=== PATIENT | female | born 1970 | race Caucasian/White ===

== ENCOUNTER 2017-09-07 05:22 | Observation (INO) | payer BC ==
[2017-08-18 12:52] VITALS: BMI 23.0
--- NOTE | 2017-08-18 13:18 | PAT Medication Instructions ---
Service Date Aug 18, 2017. Current Home Medication List No Active Prescriptions or Reported Meds Medication Instructions For Your Scheduled Surgery No Active Prescriptions or Reported Meds--Please contact PAT department if starting any medications prior to surgery. If you have any questions please call us at [phone] or [phone] or [phone]
[2017-08-18 13:57] LABS: BASO % 0.6 %; BASO ABS # 0.03 K/uL (0-0.2); EOS % 5.5 %; HEMATOCRIT 31.1 % (37-47); LYMPH % 20.7 %; LYMPH ABS # 1.09 K/uL (1.2-3.4); MEAN CELL VOLUME 70.8 fL (80-100); MEAN CORPUSCULAR HEMOGLOBIN 20.7 pg (25-34); MEAN CORPUSCULAR HGB CONC 29.3 g/dl (32-36); MEAN PLATELET VOLUME 10.6 fL (7.4-10.4); MONO % 5.1 %; NEUT % 68.1 %; PLATELET COUNT 377 K/uL (130-400); RED BLOOD COUNT 4.39 M/uL (4.2-5.4); WHITE BLOOD COUNT 5.26 K/uL (4.8-10.8)
[2017-08-18 14:08] LABS: COMPLETE YES
[2017-08-18 14:09] LABS: PARTIAL THROMBOPLASTIN RATIO 0.9
[2017-08-18 14:14] LABS: BUN/CREATININE RATIO 21.8 (10-20); CALCIUM 8.9 mg/dl (8.5-10.1); CREATININE 0.65 mg/dl (0.60-1.20)
[2017-08-18 14:17] LABS: ANISOCYTOSIS PRESENT; HYPERSEGMENTED POLYS 1+; HYPOCHROMIA PRESENT; MICROCYTOSIS PRESENT
[~2017-09-07] VITALS: Ht 172.7 cm; Wt 68.6 kg
[2017-09-07] VITALS (9 sets, daily range): BP systolic 107–146; BP diastolic 57–76; PULSE 63–89; TEMP 36.7–37.3; O2SAT 97–99; Ht 172.7 cm; Wt 68.6 kg
[2017-09-07] MEDS ORDERED: ENOXAPARIN 40 MG/0.4 ML SYR SQ SCH (06:00)
[2017-09-07] MEDS ORDERED: LACTATED RINGER'S 1000ML 1,000 ML IV SCH (06:00)
--- NOTE | 2017-09-07 06:55 | History & Physical Bridge Note ---
H&P Re-Evaluation Bridge Note: I have examined the patient, reviewed the History & Physical and in the interval since the performance of the History & Physical I have noted the following changes of clinical significance: No changes noted
[2017-09-07] MEDS ORDERED: NURSING VERBAL MED ORDER ONE ×2 (06:58→22:15)
[2017-09-07] MEDS ORDERED: SCOPOLAMINE 1.5 MG TDSY TD ONE (06:58)
[2017-09-07] MEDS ORDERED: MIDAZOLAM HCL 1 MG/ML 2ML VIAL ONE (07:01)
[2017-09-07] MEDS ORDERED: FENTANYL CITRATE INJ 50 MCG/1 ML 2 ML VIAL ONE ×2 (07:01→10:04)
[2017-09-07] MEDS ORDERED: ACETAMINOPHEN 1000 MG/100 ML IV IV ONE (07:08)
[2017-09-07] MEDS ORDERED: FENTANYL CITRATE INJ 50 MCG/1 ML 2 ML VIAL IV PRN (07:15)
[2017-09-07] MEDS ORDERED: MoRPHine SULFATE 10 MG/ML CARP/VIAL IV PRN (07:15)
[2017-09-07] MEDS ORDERED: ONDANSETRON INJ 2 MG/ML 2 ML VIAL IV PRN ×3 (07:15→14:30)
[2017-09-07] MEDS ORDERED: ATROPINE SULFATE 0.1 MG/ML 5ML SYR IV PRN (07:15)
[2017-09-07] MEDS ORDERED: EpHEDrine SULFATE INJ 50 MG/ML AMP IV PRN (07:15)
[2017-09-07] MEDS ORDERED: LIDOCAINE/EPINEPHRINE 1% 20 ML VIAL ONE (07:20)
[2017-09-07] MEDS ORDERED: CEFAZOLIN SOD 1 GM VIAL ONE ×2 (07:20→10:46)
[2017-09-07] MEDS ORDERED: GENTAMICIN SULFATE 40 MG/ML 2 ML VIAL ONE (07:20)
[2017-09-07] MEDS ORDERED: BUPIVACAINE 0.25% 30 ML VIAL ONE (07:20)
[2017-09-07] MEDS ORDERED: BACITRACIN 50000 UNIT VIAL ONE (07:21)
[2017-09-07] MEDS: CEFAZOLIN 1000MG/55 ML D5W IV SCH ×2 (07:33→11:52)
[2017-09-07] MEDS ORDERED: HYDROmorphone INJ 2 MG/ML SYR/VIAL ONE (07:51)
[2017-09-07] MEDS ORDERED: ROCURONIUM BROMIDE 10 MG/ML 5 ML VIAL IV ONE (08:18)
[2017-09-07] MEDS ORDERED: METOCLOPRAMIDE HCL INJ 5 MG/ML 2 ML VIAL ONE (08:18)
[2017-09-07] MEDS ORDERED: PROPOFOL IV EMULSION 10 MG/ML 20 ML VIAL IV ONE (08:18)
[2017-09-07] MEDS ORDERED: GLYCOPYRROLATE INJ 0.2 MG/ML VIAL ONE (08:18)
[2017-09-07] MEDS ORDERED: LIDOCAINE HCL 2% 2 ML VIAL (20MG/ML) ONE (08:18)
[2017-09-07] MEDS ORDERED: LARYING-O-JET KIT (LTA) ONE ×2 (08:18)
[2017-09-07] MEDS ORDERED: NEOSTIGMINE METHYLSULFATE 5 MG/5 ML SYR ONE (08:18)
[2017-09-07] MEDS ORDERED: ONDANSETRON INJ 2 MG/ML 2 ML VIAL ONE (08:18)
--- NOTE | 2017-09-07 11:35 | OPERATIVE REPORT ---
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 POSTOPERATIVE DIAGNOSIS: Same. PROCEDURE: Left nipple sparing mastectomy to be followed by immediate aeronautical design engineer reconstruction by Dr. Sheyla Macdonald. SURGEON: Dr. Brar. ANESTHESIA: General. ESTIMATED BLOOD LOSS: Minimal. Drains were to be placed by Dr. Sheyla Macdonald. Counts were correct following this procedure. INDICATIONS AND FINDINGS: The patient is a 47-year-old female who 3 years ago was treated for an invasive ductal carcinoma with lumpectomy, chemotherapy to include Herceptin and radiation therapy. She subsequently developed calcifications near the tumor bed. Core biopsy performed last year showed only fibrosis; however calcifications continue to increase in core biopsy this year revealed ductal carcinoma in situ. For this reason, she was required a mastectomy. At the time of the procedure, she had a very dense scar in the area of her previous lumpectomy. No other grossly positive tissue was seen. Following the procedure, the tissue, the nipple and areola had good capillary ooze and the skin appeared normal. The patient's tissue was very adherent from her previous radiation. The breast was adherent to the pectoralis muscle and the breast tissue was adherent to the subcutaneous tissue as well. TECHNIQUE: The patient was placed on the operating table in supine position with her arms extended on arm boards. She had been marked by Dr. Sheyla Macdonald in the holding area prior to the procedure. She was scrubbed with Betadine, prepped with Betadine and draped in a sterile fashion. A timeout was performed identifying patient, procedure and site which were marked in the holding area. An infra-areolar incision was made for approximately 8 cm. Incision was made through this line with a scalpel and carried down through the subcutaneous tissue. Bovie cautery was used to dissect the breast tissue down to the chest wall in the inframammary area, keeping the inframammary fold intact. The breast was then dissected off of the chest for approximately 3 cm. The flap was then raised between the breast and the subcutaneous tissue approximately 3 cm. At this point, Rogelio clamps were placed for retraction on the breast and dissection was carried back and forth from deep to superficial from side to side to roll the breast in and out of the wound to allow for this dissection. Finally, the scar was encountered. A dissection was carried down approximately 1 cm deep into the scar to avoid injury to the skin. This portion of the scar would be removed with sharp dissection with scissors following removal of the breast. Once this scar was released, the breast could be rolled in both directions to complete the dissection. Once the breast was removed, a suture was placed double suture on the axillary tail and a single stitch was placed in the area just beneath the nipple anteriorly. The wound was inspected and found to have good hemostasis. Attention was then turned to the scar. Sharp dissection with scissors was used to resect the firm portion of the fibrous scar directly below the skin. There was a thin layer of subcutaneous tissue in this area. There was good capillary ooze once this was removed. Attention was then turned to the area beneath the nipple and areola. There was one area of residual tissue beneath the areola laterally, this was removed using Metzenbaum scissors. Once again there was good capillary bleeding. Finally, the tissue directly below the nipple was excised separately and all 3 specimens were sent separately for pathology. The wound was inspected once again and found to have good hemostasis. The field was turned over to Dr. Sheyla Macdonald for immediate reconstruction. I attest to the content of the Intraoperative Record and any orders documented therein. Any exception s are noted below.
--- NOTE | 2017-09-07 12:17 | [facility] Post Operative Brief Note ---
Immediate Operative Summary Operative Date Sep 07, 2017. Pre-Operative Diagnosis Left Breast Cancer Post-Operative Diagnosis Left Breast Cancer Procedure(s) Performed Immediate Left Breast reconstruction with silicone implant and Alloderm Surgeon Dr. Brar/Dr. Macdonald Stock Letterer Surgeon(s) none Estimated Blood Loss 10 Findings left NAC pink and viable at close of case Specimens A) Left breast mastectomy- double stitch axillary tail, single stitch anterior below nipple sent fresh at 1049 ([place]) B) Superficial scar tissue- above lumpectomy site ([place]) C) Tissue below areola ([place]) D) Tissue behind nipple ([place]) E) Muscle Mastectomy site ([place]) F) Skin and Scar tissue left breast ([place]) Drains CORBY x1 Anesthesia general Complication(s) None Disposition Recovery Room / PACU
[2017-09-07] MEDS ORDERED: METOCLOPRAMIDE HCL INJ 5 MG/ML 2 ML VIAL IV PRN (12:30)
[2017-09-07] MEDS ORDERED: MoRPHine SULFATE 2 MG/ML CARP IV PRN (12:30)
[2017-09-07] MEDS ORDERED: MoRPHine SULFATE 4 MG/ML 1 ML CARP\\VIAL IV PRN ×2 (12:30)
[2017-09-07] MEDS ORDERED: HYDROCODONE/ACETAMOPHEN 5/325MG TAB PO PRN (12:30)
[2017-09-07] MEDS ORDERED: ACETAMINOPHEN 325 MG TAB PO PRN (12:30)
--- NOTE | 2017-09-07 12:31 | Discharge Instructions ---
Discharge Instructions Date of Service Sep 07, 2017. Admission Reason for Admission: Left Breast Cancer Discharge Discharge Diagnosis / Problem: recurrent left breast cancer Discharge Goals Goal(s): Decrease discomfort, Improve function Activity Recommendations Activity Limitations: per Instructions/Follow-up section . Instructions / Follow-Up Instructions / Follow-Up ACTIVITY RECOMMENDATIONS: __Normal activities _x_No bending, lifting or straining __No driving _x_Driving allowed when you are off pain medications __Walking permitted __You should have help at home for ___ days DRESSINGS: __No dressings required _x_Keep dressings dry/in place until first office visit __Remove dressings ___ and leave dressings off __Apply ice ___ days __Remove dressings and reapply garment __Apply antibiotic ointment (Bacitracin, Neosporin, etc) to wounds 3-4 times/ day for 10 days BATHING: _x_Keep dressings dry _x_Sponge bathing permitted __Showering permitted _x_No swimming, hot tubs or soaking in a tub MEDICATIONS: Resume previous medications unless instructed otherwise by your surgeon. __Do not use aspirin, Motrin, Advil or Ibuprofen as these may promote bleeding. Please use Tylenol. _x_Prescription(s) provided: vicodin, keflex in the office OTHER INSTRUCTIONS: _x_Record drain output 2-3 times per day SPECIAL CARE INSTRUCTIONS: * It is normal to have a mild fever after surgery. If your temperature is higher than 101.5 degrees F, please call the office at [phone]. * Constipation is a typical side effect of pain medication. An over-the- counter stool softener will help relieve this. * Leaking around surgical drains may occur and should not cause concern. Sometimes these drains become clogged. If this happens, remove the bulb and milk the clot out of the tube, then replace the bulb. * Drainage from wounds after liposuction is normal and should be expected. Garments will become soiled. You should protect furniture and bedding. This drainage should mostly subside within 2-3 days. Leave garments in place unless instructed to remove them. * If you have unusual drainage from a wound or are concerned you have an infection or have any questions or concerns, please call the office at [phone]. FOLLOW UP VISIT: If not already scheduled, please call the office, , when you return home after surgery to schedule an appointment to be seen in _2__ days. Current Hospital Diet Patient's current hospital diet: Regular Diet Discharge Diet Recommended Diet: Regular Diet Procedures Procedures Performed: Immediate Left Breast reconstruction with silicone implant and Alloderm Pending Studies Studies pending at discharge: no Medical Emergencies . Who to Call and When: Medical Emergencies: If at any time you feel your situation is an emergency, please call 911 immediately. . Non-Emergent Contact Non-Emergency issues call your: Primary Care Provider, Surgeon Call Non-Emergent contact if: temperature is above 101.5 . "Provider Documentation" section prepared by Sheyla Macdonald. . VTE Core Measure Inpt VTE Proph given/why not?: Enoxaparin (Lovenox) [place] Drug Monitoring Program Search Results: patient reviewed within database, no issues identified ( documented in office chart)
--- NOTE | 2017-09-07 13:05 | Anesthesiology Progress Note ---
Anesthesia Post Op Note Date & Time Sep 07, 2017 at 13:05 Vital Signs Pain Intensity: 2 Vital Signs Past 12 Hours Date Time Temp Pulse Resp B/P (MAP) Pulse Ox O2 Delivery O2 Flow Rate FiO2 09/07/17 12:55 80 14 132/77 94 Room Air 09/07/17 12:45 77 14 127/78 100 Oxymask 09/07/17 12:35 88 19 138/72 100 Oxymask 09/07/17 12:27 36.9 87 16 144/80 99 Oxymask 09/07/17 05:54 37 75 18 131/75 (93) 99 Room Air Notes Mental Status: alert / awake / arousable, participated in evaluation Pt Amnestic to Procedure: Yes Nausea / Vomiting: adequately controlled Pain: adequately controlled Airway Patency, RR, SpO2: stable & adequate BP & HR: stable & adequate Hydration State: stable & adequate Anesthetic Complications: no major complications apparent
--- NOTE | 2017-09-07 14:04 | OPERATIVE REPORT ---
DATE OF OPERATION: 09/07/2017 PREOPERATIVE DIAGNOSIS: Recurrent left breast cancer. POSTOPERATIVE DIAGNOSIS: Same. PROCEDURE: Immediate breast reconstruction using AlloDerm and silicone implant. SURGEON: Dr. Sheyla Macdonald. HAND STRIPER: None. ANESTHESIA: General. COMPLICATIONS: None. INDICATION FOR THE PROCEDURE: The patient is a 47-year-old female referred to me by Dr. Brar after having had a left breast lumpectomy and radiation with recurrence necessitating mastectomy. We discussed treatment options. Ideally, autologous reconstruction would be best option given her history of radiation. However, due to her thin body habitus, desire for a quicker recovery and good skin quality, we discussed the option of performing an immediate direct implant reconstruction using AlloDerm to reconstruct the lower pole. She understood that symmetry would be difficult to achieve, but would attempt to achieve an improvement in her symmetry and volume and that if there were any complications related to capsular contracture or her prior radiation, we may still need to consider proceeding with the TRAM flap. BRIEF DESCRIPTION OF THE PROCEDURE: Risks, benefits, alternatives of the procedure were explained to the patient who agreed and signed consent. She was identified and marked in the preoperative holding area with Dr. Brar. She was taken to the operating room where she was placed under general anesthesia. Dr. Brar performed a nipple-sparing mastectomy through the inframammary fold. She noted a dense scar tissue deep to the nipple-areolar complex, but reported normal-appearing skin and soft tissue as well as normal bleeding. Once he completed his mastectomy, specimen was weighed and was with 126 grams. At this point, I scrubbed and resumed care. A new time-out procedure was performed. Drapes were replaced. I inspected the pocket and good hemostasis was noted. I identified the inferior aspect of the pectoralis major muscle as well as the lateral aspect. Electrocautery was used to elevate the pectoralis major muscle off of the pectoralis minor and underlying ribs. Along the inframammary fold, this was divided using electrocautery and this was carried medially to the inferior most sternal attachments which were divided. Perforating vessels were identified and ligated using electrocautery. At this point, I evaluated the soft tissue envelope. The skin appeared to be mostly good condition. I selected several different silicone sizer implants, first trying a 225 and 250 mL implant. Ultimately, I felt that a 200 mL moderate plus [place] smooth round implant would provide the most reasonable symmetry and given the base diameter and projection. It should be noted that the right breast was fairly ptotic and we did not plan to address this at this stage. Prior to committing to the permanent implant, AlloDerm was sutured into place using 2-0 Vicryl running suture to attach the inferior aspect of the pectoralis to the superior aspect of the AlloDerm. I then placed the 200s mL sizer implant into the pocket and performed a partial closure along the inframammary fold using 2-0 Vicryl interrupted U sutures. The patient was placed in seated position and noted to have reasonable symmetry with regards to volume between the 2 breasts. At this point, a sizer implant was removed. Gloves were changed. All instruments were wiped down. The pocket was irrigated using triple antibiotic irrigation. A 200 mL moderate plus profile smooth round [place] implant was opened and placed into the pocket. The remainder of the pocket was closed down using 2-0 Vicryl interrupted U sutures along the inframammary fold and to the serratus fascia laterally. The excess AlloDerm was trimmed. At this point, a 15-Bengali James drain was placed into the pocket. This was sutured into place using 3-0 nylon suture. Wound closure was begun using 2-0 Vicryl deep dermal sutures, 3-0 PDS interrupted superficial dermal sutures, 3-0 Monocryl running subcuticular suture. Dermabond Prineo was applied. Once the Prineo had dried, dry dressings and a surgical bra were placed. Prior to leaving the operating room, 20 mL of 0.25% Marcaine plain were instilled into the CORBY drain prior to activating it. The procedure was tolerated well. The patient was awakened and transferred to recovery in satisfactory condition. I attest to the content of the Intraoperative Record and any orders documented therein. Any exception s are noted below.
--- NOTE | 2017-09-07 14:27 | Progress Note ---
Progress Note Date of Service Sep 07, 2017. Progress Note Patient seen postop doing well. pain controlled so far afebrile VSS dressings c/d/i CORBY 10 cc, serosanguinous Discussed plan for discharge; patient prefers to remain for observation Will assess again in am
[2017-09-07] MEDS ORDERED: PROMETHAZINE HCL INJ 12.5 MG in SODIUM CHLORIDE 0.9% 50ML 50 ML IV PRN (14:30)
[2017-09-07] MEDS ORDERED: DiphenhydrAMINE HCL 50 MG/ML VIAL IV PRN (14:30)
[2017-09-07] MEDS ORDERED: OXAZEPAM 10MG CAP PO PRN (14:30)
[2017-09-07] MEDS: CHECK SCOPOLAMINE PATCH PLACEMENT SCH ×2 (16:14→23:37)
[2017-09-07] MEDS ORDERED: IV FLUIDS COMPLETED PRN (16:15)
[2017-09-07] MEDS: HYDROCODONE/ACETAMOPHEN 5/325MG TAB PO PRN (16:24)
[2017-09-07] MEDS ORDERED: D5W AND 1/2NSS + 20MEQ KCL 1,000 ML IV SCH (16:30)
[2017-09-08] MEDS: HYDROCODONE/ACETAMOPHEN 5/325MG TAB PO PRN ×2 (03:44→08:25)
[2017-09-08 03:48] VITALS: BP 116/72; PULSE 82; TEMP 37; O2SAT 98
--- NOTE | 2017-09-08 06:28 | Progress Note ---
Progress Note Date of Service Sep 08, 2017. Progress Note POD #1 Pain controlled on PO meds afebrile VSS dressings C/D/I NAC pink and viable, breast soft without hematoma CORBY 70 cc since OR, mostly serous Doing well For discharge today Instructed in dressing changes script for Keflex and Vicodin provided in office patient may cancel appointment for tomorrow in office and follow up in 2 weeks instructed to call when drain output <10 cc in 24 hours
[2017-09-08] MEDS ORDERED: CEPHALEXIN MONOHYDRATE 500 MG CAP PO SCH (07:00)
[2017-09-08 07:11] VITALS: BP 116/72; PULSE 82; TEMP 37; O2SAT 98
[2017-09-08] MEDS: CHECK SCOPOLAMINE PATCH PLACEMENT SCH (07:19)
--- NOTE | 2017-09-08 07:25 | DISCHARGE SUMMARY ---
ADMISSION DIAGNOSIS: Recurrent left breast cancer. DISCHARGE DIAGNOSIS: Same. SECONDARY DIAGNOSES: None. PROCEDURES: The patient underwent left nipple-sparing mastectomy performed by Dr. Brar followed by immediate direct implant reconstruction with AlloDerm and silicone implant. HOSPITAL COURSE: The patient underwent previously mentioned surgery which was uneventful. Postoperatively, she was kept for observation to assist with pain control. There were no concerns throughout her stay. She was discharged to home on postoperative day 1 with a CORBY drain in place. Dressing instructions were provided as well as drain site care instructions. She will follow up in the office with me in 2 weeks. She cancelled her scheduled appointment for tomorrow as she did remain for observation. She is given a prescription for Keflex and Vicodin in the office preoperatively. She knows her all other medications.
--- NOTE | 2017-09-08 08:12 | Anesthesiology Progress Note ---
Anesthesia Post Op Note Date & Time Sep 08, 2017 at 08:11 Vital Signs Pain Intensity: 8.0 Vital Signs Past 12 Hours Date Time Temp Pulse Resp B/P (MAP) Pulse Ox O2 Delivery O2 Flow Rate FiO2 09/08/17 07:11 37.0 82 16 98 Room Air 09/08/17 03:48 37.0 82 16 116/72 (87) 98 Room Air 09/07/17 23:30 36.8 65 16 107/64 (78) 99 Room Air 09/07/17 23:16 Room Air Notes Mental Status: alert / awake / arousable, participated in evaluation Pt Amnestic to Procedure: Yes Nausea / Vomiting: adequately controlled Pain: adequately controlled Airway Patency, RR, SpO2: stable & adequate BP & HR: stable & adequate Hydration State: stable & adequate Anesthetic Complications: no major complications apparent
[2017-09-08] MEDS ORDERED: ENOXAPARIN 40 MG/0.4 ML SYR SQ SCH (09:00)
[2017-09-08] MEDS ORDERED: MULTIVITAMIN TAB PO SCH (09:00)
== END 2017-09-08 09:33 | disposition home or self-care (01) ==
LOC: C.ACU 05:22 → C.MSW 06:35 → ENRESERV 15:30
PROVIDERS: ADMIT Plastic Surgery; ATTEND Plastic Surgery
DX: D05.12 Intraductal carcinoma in situ of left breast (principal)